=== PATIENT | female | born 1940 | race Caucasian/White ===

== ENCOUNTER 2017-12-07 22:47 | Emergency (ER) | payer OTHER ==
[~2017-12-07] VITALS: Ht 172.7 cm; Wt 64.4 kg
[~2017-12-07 22:47] MED LIST: CITRATE OF MAG296 ML PO; MULTIVITAMINS
[2017-12-08 00:29] LABS: ABSOLUTE NEUTROPHILS 6.2 thou/uL (1.4-8.2); BASOPHILS 0.7 % (0.0-2.0); EOSINOPHILS 0.4 % (0.0-3.0); HEMATOCRIT 42.3 % (37.0-47.0); HEMOGLOBIN 14.2 gm/dL (12.0-15.0); MCHC 33.6 g/dL (28.0-37.0); MCV 92.2 fL (80.0-100.0); MONOCYTES 8.1 % (1.0-8.0); PLATELET COUNT 182 thou/uL (150-400); POLYS 67.8 % (36.0-66.0); RBC 4.59 mil/uL (4.20-5.00); RDW 13.9 % (10.5-14.5); WBC 9.1 thou/uL (4.0-11.0)
[2017-12-08 00:33] LABS: CALCIUM 9.3 mg/dL (8.5-10.1); CREATININE 0.8 mg/dL (0.6-1.0); POTASSIUM 3.8 mmol/L (3.5-5.1)
[2017-12-08 00:39] LABS: ALBUMIN 4.3 g/dL (3.4-5.0); TOTAL BILIRUBIN 0.4 mg/dL (<0.1-1.0); TOTAL PROTEIN 7.3 g/dL (6.4-8.2)
[2017-12-08 00:42] LABS: APTT 25.4 Seconds (24.5-32.8); PROTIME 9.7 Seconds (9.3-11.4)
[2017-12-08] MEDS ORDERED: ANUSOL-HC25 MG RECTAL (03:10)
[2017-12-08 03:12] VITALS: BP 158/73
== END 2017-12-08 03:25 | disposition home or self-care (01) ==
LOC: ER 22:47
PROVIDERS: Emergency Medicine
DX: K62.5 Hemorrhage of anus and rectum (principal); N83.201 Unspecified ovarian cyst, right side; R91.1 Solitary pulmonary nodule; Z88.0 Allergy status to penicillin; Z91.040 Latex allergy status; Z91.048 Other nonmedicinal substance allergy status; Z87.442 Personal history of urinary calculi

== ENCOUNTER → 2018-03-22 | Outpatient (CLI) | payer OTHER ==
[~2018-03-22] MED LIST changes: +ALIVE WOMEN'S1 EAC1 PO; +ANUSOL-HC25 MG RECTAL; +ATIVAN0.5 MG PO
== END ==
LOC: ULTRA 10:09
DX: N83.201 Unspecified ovarian cyst, right side (principal)